=== PATIENT | male | born 1960 | race African-American/Black ===

== ENCOUNTER 2016-12-25 11:01 | Emergency (ER) | payer OTHER ==
[2016-12-25] MEDS ORDERED: DIPHENOX/ATROPINE 2.5/0.025 MG TABLET PO STA (12:16)
[2016-12-25] MEDS ORDERED: ONDANSETRON ODT 4 MG TABLET TL STA (12:16)
[2016-12-25] MEDS ORDERED: FAMOTIDINE 20 MG TABLET PO STA (12:16)
[2016-12-25] MEDS ORDERED: DIPHENOX/ATROPINE 2.5/0.025 MG TABLET PO ONE (12:20)
[2016-12-25] MEDS ORDERED: ONDANSETRON ODT 4 MG TABLET ONE (12:20)
[2016-12-25] MEDS ORDERED: FAMOTIDINE 20 MG TABLET ONE (12:20)
== END 2016-12-25 13:34 | disposition home or self-care (01) ==
DX: R11.2 Nausea with vomiting, unspecified (principal); R19.7 Diarrhea, unspecified; A08.4 Viral intestinal infection, unspecified; T56.91XA Toxic effect of unspecified metal, accidental (unintentional), initial encounter
CPT/HCPCS: 36415; 80053; 82175; 83655; 83690; 83825; 85025; 99283; A9270; Q0162